=== PATIENT | female | born 1960 | race Caucasian/White ===

== ENCOUNTER 2022-01-14 21:14 | Observation (INO) | payer OTHER ==
[~2022-01-14] VITALS: Ht 162.6 cm; Wt 113.4 kg
[~2022-01-14 21:14] MED LIST: ATORVASTATIN CA20 MG PO; HUMALOG SQ; LEVEMIR SQ; LISINOPRIL PO; METFORMIN PO
[2022-01-14] MEDS ORDERED: LISINOPRIL10 MG PO (23:50)
[2022-01-15] VITALS (8 sets, daily range): BP systolic 121–141; BP diastolic 50–66
[2022-01-15] MEDS ORDERED: DEXTROSE 50% SYRINGE 50 ML IV PRN (00:15)
[2022-01-15] MEDS ORDERED: ONDANSETRON HCL INJ 2MG/ML 2ML 2 MG/ML VIAL IV PRN (00:30)
[2022-01-15] MEDS ORDERED: ACETAMINOPHEN 325 MG TAB PO PRN ×2 (00:30→01:00)
[2022-01-15] MEDS ORDERED: ALPRAZOLAM 0.5 MG TAB PO PRN (00:30)
[2022-01-15] MEDS ORDERED: ASPIRIN 81 MG CHEW TAB PO ONE (00:30)
[2022-01-15] MEDS ORDERED: TRAZODONE HCL 50 MG TAB PO SCH (00:30)
[2022-01-15 00:34] LABS: BASOPHILS # (AUTO) 0.1 (0.0-0.1); BASOPHILS % 0.8 % (0.0-1.0); EOSINOPHILS # (AUTO) 0.1 (0.0-0.4); EOSINOPHILS % 1.9 % (0.0-6.0); HEMOGLOBIN 12.2 g/dL (12.0-16.0); LYMPHOCYTES # (AUTO) 2.2 (1.0-3.2); LYMPHOCYTES % 29.7 % (18.0-39.1); MEAN CORPUSCULAR HEMOGLOBIN 28.3 pg (28-32); MEAN CORPUSCULAR VOLUME 85.8 fL (81-99); MONOCYTES # (AUTO) 0.5 (0.2-0.8); MONOCYTES % 6.9 % (4.4-11.3); NEUTROPHILS # (AUTO) 4.4 (2.1-6.9); NEUTROPHILS % 60.4 % (38.7-80.0); PLATELET COUNT 257 x10e3/uL (140-360); RED BLOOD COUNT 4.31 x10e6/uL (3.6-5.1); RED CELL DISTRIBUTION WIDTH 13.7 % (11.7-14.4)
[2022-01-15 00:55] LABS: CALCIUM 8.9 mg/dL (8.4-10.2); CREATININE, SERUM 0.77 mg/dL (0.57-1.11)
[2022-01-15] MEDS ORDERED: HYDROCODONE/APAP 5MG-325MG TAB PO PRN (01:00)
[2022-01-15 04:24] LABS: CLARITY,URINE CLEAR (CLEAR); COLOR,URINE STRAW (YELLOW); KETONES,URINE NEGATIVE (NEGATIVE); LEUKOCYTE ESTERASE ,URINE SMALL (NEGATIVE); NITRITE,URINE NEGATIVE (NEGATIVE); PROTEIN,URINE DIPSTICK NEGATIVE (NEGATIVE); URINE UROBILINOGEN 0.2 mg/dL (0.2 - 1)
[2022-01-15 04:26] LABS: BACTERIA,URINE FEW /HPF; EPITHELIAL CELLS,URINE MODERATE /LPF; RBC,URINE 0-5 /HPF (0-5)
[2022-01-15 05:27] LABS: CHOL/HDL RATIO 2.9 (3.0-3.6)
[2022-01-15 05:42] LABS: CREATINE KINASE 40 IU/L (29-168)
[2022-01-15 05:49] LABS: THYROID STIMULATING HORMONE 1.896 uIU/mL (0.350-4.940)
[2022-01-15] MEDS ORDERED: INSULIN LISPRO 100 UNIT/1 ML 3ML VIAL SQ SCH (07:30)
[2022-01-15] MEDS ORDERED: SENNOSIDES 8.6 MG TAB PO SCH ×2 (09:00)
[2022-01-15] MEDS ORDERED: DOCUSATE SODIUM 100 MG CAP PO SCH ×2 (09:00)
[2022-01-15] MEDS ORDERED: METFORMIN HCL 500 MG TAB PO SCH (12:15)
[2022-01-15] MEDS ORDERED: GLIMEPIRIDE 2 MG TAB PO ONE (13:00)
[2022-01-15 13:17] LABS: CREATINE KINASE 85 IU/L (29-168)
[2022-01-15] MEDS ORDERED: ENOXAPARIN SOD INJ 40 MG/0.4 ML SYR SC SCH (17:00)
[2022-01-15] MEDS ORDERED: ATORVASTATIN 40 MG TAB PO SCH (21:00)
[2022-01-15] MEDS ORDERED: LISINOPRIL 10 MG TAB PO SCH (21:00)
== END 2022-01-15 18:13 | disposition home or self-care (01) ==
LOC: MED/SURG 22:31 → INTOOBSV 22:31
PROVIDERS: ADMIT Internal Medicine; ATTEND Internal Medicine
DX: R07.89 Other chest pain (principal); E11.9 Type 2 diabetes mellitus without complications; I10 Essential (primary) hypertension; F41.9 Anxiety disorder, unspecified; E66.01 Morbid (severe) obesity due to excess calories; Z68.41 Body mass index [BMI] 40.0-44.9, adult; E78.5 Hyperlipidemia, unspecified; E87.1 Hypo-osmolality and hyponatremia; Z88.8 Allergy status to other drugs, medicaments and biological substances
CPT/HCPCS: 36415 ×2; 71045; 80048; 80061; 81001; 82550; 82553; 82948 ×2; 83036; 84443; 84484; 85025; 93005; G0378 ×2